=== PATIENT | female | born 1945 | race Caucasian/White ===

== ENCOUNTER 2017-08-18 08:49 | Outpatient (CLI) | payer MEDICARE ==
--- OUTSIDE RECORDS SUMMARY | 2017-08-18 08:52 | XMS | Clinical Summary ---
:1945 Author Organization [facility] Address [address] [place] [address] Phone Care Team Providers Name Role Phone , Primary Care Provider Unavailable Allergies Not on File Current Medications Not on file Active Problems Not on file Social History Tobacco Use Types Packs/Day Years Used Date Never Assessed Sex Assigned at Date Recorded Not on file Last Filed Vital Signs Not on file Plan of Treatment Not on file Results Not on filefrom Last 3 Months
--- OUTSIDE RECORDS SUMMARY | 2017-08-18 08:52 | XMS | Clinical Summary ---
:1945 Author Organization [facility] Address [address] [place] [address] Phone Care Team Providers Name Role Phone Alyssa, Dany Primary Care Provider Unavailable Allergies No Known Allergies Current Medications Prescription Sig. Disp. Refills Start Date End Date Status aspirin (ECOTRIN) 81 MG Take 81 mg by Active enteric coated tablet mouth daily. losartan (COZAAR) 100 MG Take 100 mg by Active tablet mouth daily. simvastatin (ZOCOR) 10 MG Take 10 mg by Active tablet mouth nightly. venlafaxine (EFFEXOR) 75 Take 75 mg by Active MG tablet mouth 2 (two) times a day. verapamil extended release Take 200 mg by Active (VERELAN PM) 200 mg mouth nightly. capsule, [address] ER capsule cholecalciferol, vitamin Take 1,000 Units Active D3, (VITAMIN D3) 1,000 by mouth daily. unit tablet atorvastatin (LIPITOR) 20 Take 20 mg by 07/04/2017 Active MG tablet mouth daily. venlafaxine XR 07/04/2017 Active (EFFEXOR-XR) 75 MG 24 hr capsule Active Problems Problem Noted Date Aortic stenosis 11/01/2016 Encounters Date Type Specialty Care Team Description 08/16/2017 Orders Only Aleta Krishnan, Aortic stenosis, RN severe (Primary Dx) 08/05/2017 Telephone Cardiology Joseph Canales, pt wanting to travel MD to [place] for family emergency 08/03/2017 Orders Only Kalpana Erwin Aortic valve stenosis, unspecified etiology (Primary Dx) 08/02/2017 Multidisciplinary Visit Cardiology Joseph Canales, Aortic valve MD stenosis, unspecified etiology (Primary Dx) from Last 3 Months Family History Medical History Relation Name Comments Coronary artery disease Father Hyperlipidemia Mother Hypertension Mother Hypertension Sister Relation Name Status Comments Father Mother Sister Social History Tobacco Use Types Packs/Day Years Used Date Never Smoker Alcohol Use Drinks/Week oz/Week Comments No Sex Assigned at Date Recorded Not on file Last Filed Vital Signs Vital Sign Reading Time Taken Blood Pressure 133/96 08/02/2017 2:51 PM CDT Pulse 86 08/02/2017 2:51 PM CDT Temperature 36.9 C (98.5 F) 08/02/2017 2:51 PM CDT Respiratory Rate 16 11/02/2016 4:20 PM [employer]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 Oxygen Saturation - - Inhaled Oxygen Concentration - - Weight 90.7 kg (200 lb) 08/02/2017 2:51 PM CDT Height 154.9 cm (5' 1") 08/02/2017 2:51 PM CDT Body Mass Index 37.79 08/02/2017 2:51 PM CDT Plan of Treatment Health Maintenance Due Date Last Done Comments COLONOSCOPY 1994 ZOSTER VACCINE 2004 PNEUMOCOCCAL POLYSACCHARIDE VACCINE 2009 AGE 65 AND OVER PNEUMOCOCCAL-13 2009 INFLUENZA VACCINE 06/21/2017 MAMMOGRAM 07/21/2018 07/21/2016, 05/16/2015, 05/15/2014, Additional history exists Results ECG 12 lead (08/02/2017 1:48 PM) Component Value Ref Range Ventricular rate 73 Atrial rate 73 OH interval 152 QRSD interval 86 QT interval 396 QTC interval 436 P axis 1 38 QRS axis 1 4 T wave axis 79 EKG impression Normal sinus rhythm-Normal ECG-In automated comparison with ECG of 03-MAY-2017 15:11,-No significant change was found- Specimen Performing Laboratory [facility] [address] [place] [address] from Last 3 Months Insurance Payer Benefit Plan / Group Subscriber ID Type Phone Address MEDICARE MEDICARE PART A AND B [id number] Medicare [place], [place] AARP AARP SUPPLEMENT [id number] Commercial
[2017-08-18 09:52] LABS: Hematocrit 43.3 % (36.0-47.0); Mean Platelet Volume 6.9 fL (7.4-10.4); Red Blood Cell (RBC) Count 4.92 mill/uL (4.20-5.40); White Blood Cell (WBC) Count 6.6 thou/uL (4.8-10.8)
[2017-08-18 09:58] LABS: Prothrombin Time 13.2 SEC (12.0-14.7)
[2017-08-18 09:59] LABS: PTT 30.2 SEC (22.9-36.1)
[2017-08-18 10:13] LABS: ALT (SGPT) 13 U/L (8-55); AST (SGOT) 15 U/L (5-34); Alkaline Phosphatase 113 U/L (40-150); Anion Gap 12 mmol/L (10-20); BUN (Urea Nitrogen) 12 mg/dL (9.8-20.1); Bilirubin, Total 0.5 mg/dL (0.2-1.2); Calc. Creatinine Clearance 0 mL/min (70-130); Calcium 9.9 mg/dL (7.8-10.44); Carbon Dioxide 25 mmol/L (23-31); Chloride 105 mmol/L (98-107); Cholesterol 175 mg/dl (< 200 Desired); Estimated GFR-MDRD 79; LDL Cholesterol, Calculated 81 mg/dL; Protein, Total 7.2 g/dL (6.0-8.3)
--- NOTE | 2017-08-18 10:45 | RAD ---
TWO VIEWS OF THE CHEST: COMPARISON: Preoperative radiograph. FINDINGS: Two views of the chest show normal sized cardiomediastinal silhouette. There is no evidence of conso lidation, mass, or pleural effusion. The bones are unremarkable. IMPRESSION: No evidence of acute cardiopulmonary disease. POS: [facility]
== END 2017-08-18 08:50 | disposition home or self-care (01) ==
LOC: LABBT 08:49
PROVIDERS: ATTEND Internal Medicine
DX: Z01.818 Encounter for other preprocedural examination (principal); I35.0 Nonrheumatic aortic (valve) stenosis
CPT/HCPCS: 71020; 80053; 80061; 85027; 85610; 85730; 93005; 93010

== ENCOUNTER → 2017-08-19 | Day surgery (SDC) | payer MEDICARE ==
[2017-08-18 09:09] VITALS: BMI 38.0
[~2017-08-19] MED LIST: Diazepam 5 MG TAB ONE; Fentanyl 100 MCG/2 ML VIAL ONE; Heparin 10,000 UNITS/1 ML VIAL ONE; Midazolam HCl 2 mg/2 ml Vial ONE; Ondansetron HCl/PF 4 MG/2 ML Vial ONE; diphenhydrAMINE HCl 25 MG CAP ONE
--- OUTSIDE RECORDS SUMMARY | 2017-08-19 07:48 | XMS | Clinical Summary ---
:1945 Author Organization [facility] Address [address] [place] [address] Phone Care Team Providers Name Role Phone [...]
--- OUTSIDE RECORDS SUMMARY | 2017-08-19 07:48 | XMS | Clinical Summary ---
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 Oxygen Saturation - - Inhaled Oxygen Concentration [...] Range Ventricular rate 73 Atrial rate 73 WI interval 152 QRSD interval 86 QT interval 396 QTC interval 436 P axis 1 38 QRS axis 1 4 T wave axis 79 EKG impression Normal sinus rhythm-Normal ECG-In automated comparison with ECG of 03-MAY-2017 15:11,-No significant change was found- Specimen Performing Laboratory [facility] [address] [place] [address] from Last 3 Months Insurance Payer Benefit Plan / Group Subscriber ID Type Phone Address MEDICARE MEDICARE PART A AND B [id number] Medicare [place], [place] AARP AARP SUPPLEMENT [id number] Commercial
== END ==
LOC: CCL 07:44
PROVIDERS: ATTEND Internal Medicine
DX: I35.0 Nonrheumatic aortic (valve) stenosis (principal); E78.5 Hyperlipidemia, unspecified; I10 Essential (primary) hypertension; Z82.49 Family history of ischemic heart disease and other diseases of the circulatory system; Z79.82 Long term (current) use of aspirin; Z79.899 Other long term (current) drug therapy
CPT/HCPCS: 93460; 93561; 93798; C1760; C1769; 99152; J1644; J2250; J2405; J3010

== ENCOUNTER 2017-11-09 19:30 | Outpatient (CLI) | payer MEDICARE | END 2017-11-09 19:31 | disposition home or self-care (01) | LOC: SLEEPLAB 19:30 | PROVIDERS: ATTEND Family Medicine | DX: G47.33 Obstructive sleep apnea (adult) (pediatric) (principal); E66.9 Obesity, unspecified; F32.9 Major depressive disorder, single episode, unspecified; I10 Essential (primary) hypertension | CPT/HCPCS: 95811 ==

== ENCOUNTER 2017-11-17 19:30 | Outpatient (CLI) | payer MEDICARE | END 2017-11-17 19:31 | disposition home or self-care (01) | LOC: SLEEPLAB 19:30 | PROVIDERS: ATTEND Family Medicine | DX: G47.33 Obstructive sleep apnea (adult) (pediatric) (principal); E66.9 Obesity, unspecified; I10 Essential (primary) hypertension; G47.31 Primary central sleep apnea | CPT/HCPCS: 95811 ==

== ENCOUNTER 2018-09-11 13:07 | Outpatient (CLI) | payer MEDICARE ==
--- NOTE | 2018-09-11 16:08 | MMO ---
DIGITAL SCREENING MAMMOGRAM: 09/11/2018 COMPARISON: 08/23/2017 TECHNIQUE: The patient's mammogram is also evaluated using computer aided detection. FINDINGS: Bilateral craniocaudal and oblique mediolateral digital screening mammograms demonstrate no definite evidence of masses or lesions. A lymph node seen at the lateral aspect of the right breast, in the u pper outer quadrant, was seen on the previous exam and is stable. No significant evidence of masses or lesions noted otherwise. IMPRESSION: BI-RADS Category 1-Negative examination. POS: [facility]
== END 2018-09-11 13:08 | disposition home or self-care (01) ==
LOC: SCSMAMMO 13:07
PROVIDERS: ATTEND Family Medicine
DX: Z12.31 Encounter for screening mammogram for malignant neoplasm of breast (principal)
CPT/HCPCS: 77067

== ENCOUNTER 2023-01-14 06:02 | Day surgery (SDC) | payer MEDICARE ==
[2023-01-13 11:27] VITALS: BMI 37.5
[2023-01-14] MEDS ORDERED: PROPOFOL 200 MG/20 ML VIAL ONE (07:22)
[2023-01-14] MEDS ORDERED: Lidocaine 1% PF 5 ML VIAL ONE (07:22)
== END 2023-01-14 08:26 | disposition home or self-care (01) ==
LOC: SDC 06:02
PROVIDERS: ATTEND Internal Medicine Cardiovascular Disease
PROC: 5A2204Z Restoration of Cardiac Rhythm, Single (ICD-10-PCS; principal; 2023-01-14)
DX: I48.19 Other persistent atrial fibrillation (principal); I69.398 Other sequelae of cerebral infarction; H54.61 Unqualified visual loss, right eye, normal vision left eye; I10 Essential (primary) hypertension; E78.5 Hyperlipidemia, unspecified; Z79.01 Long term (current) use of anticoagulants; Z79.899 Other long term (current) drug therapy; Z95.2 Presence of prosthetic heart valve
CPT/HCPCS: 92960; 93005; 93010; J2704